=== PATIENT | male | born 1965 | race Caucasian/White ===

== ENCOUNTER 2016-11-28 11:02 | Emergency (ER) | payer SELFPAY ==
[~2016-11-28] VITALS: Ht 182.9 cm; Wt 90.7 kg
[2016-11-28 11:22] LABS: HEMOGLOBIN 15.4 g/dL (14.1-18.0); LYMPH # 1.6 K/mm3 (0.7-4.5); LYMPH % 32.1 % (10-50)
[2016-11-28 11:41] LABS: BUN 12 mg/dL (7-18); GFR (ESTIMATED) 79 ML/MIN (>60)
--- NOTE | 2016-11-28 11:45 | Emergency Room Report ---
History of Present Illness Time Seen by 1142 Presenting Problem in Triage Pt arrived:Walked Presenting Problem:PT REPORTS SUBSTERNAL CHEST PAIN THAT IS INTERMITTENT IN NATURE FOR APPROX 1 WEEK. STATES AT TIMES PAIN RADIATES TO DOYLE SIDES OF CHEST. PT REPORTS INTERMITTENT X1 WEEKS WITH "COLD SWEAT" EPISODES. 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 N Clinical Suspician of Infection? N Mental Status: 1 - Regular (Normal Baseline) Sepsis Risk:Low Sepsis Risk Have you (or family members/close friends) recently traveled outside the [place]? N If Yes, where/when: Have you had exposure to infectious disease within the past month? N TB? Other? Specify: 51-year-old white male with no past medical history presented with one week history of intermittent retrosternal burning pain with associated shortness of breath occasionall. He currently rates his pain as 3/10 with no soa. There is no palpitation no nausea no vomiting no diarrhea. No fever no chills no cough no congestion. He is not any precipitating or relieving factors. No radiation. Source patient, RN notes reviewed Exam Limitations no limitations ALLERGIES Coded Allergies: No Known Allergies (11/28/16) History Medical History General CAD? No Angina: No MN: No Hypertension? Yes Hyperlipidemia? No CHF? No DVT? No PE? No COPD? No Asthma? No Anemia? No GERD? No Gastric ulcers? No GI Bleed? No Hernia? No Thyroid Problems? No Hypothyroidism? No CVA? No Seizures? No Diabetes? No Renal Insuffiency? No End Stage Renal Disease? No UTI? Yes Stones? No GB Disease: No Nephritic Syndrome? No Asplenia? No Hepatitis? No Sickle Cell Disease? No Arthritis? No Migraines? No Cataracts? No Glaucoma? No MRSA? Yes HIV? No TB? No Anxiety? Yes Depression? Yes Cancer? No Site: SKIN CA REMOVED More? No Immunization Hx DT/Tetanus Unknown Surgical Hx Previous Surgery?Y SKIN CA REMOVALS Social History Smoking Hx Smoker: Current Every Day Smoker Tobacco: Yes Type Cigarettes Packs/day < 1 Pack Alcohol Alcohol: No Review of Systems All Other Systems Reviewed and Negative Constitutional no symptoms reported Eyes no symptoms reported ENT no symptoms reported. Respiratory no symptoms reported Cardiovascular see HPI, chest pain Gastrointestinal no symptoms reported Genitourinary no symptoms reported. Musculoskeletal no symptoms reported Skin no symptoms reported Psychiatric/Neurological no symptoms reported Physical Exam Vital Signs Vital Signs Date Time Temp Pulse Resp B/P Pulse O2 O2 Flow FiO2 Ox Delivery Rate 11/28 1347 74 16 155/93 94 11/28 1230 70 16 122/84 95 11/28 1156 60 16 135/77 97 11/28 1102 98.0 66 18 154/89 94 - WBC >12,000 or <4,000 or 10% bands? 2 or more SIRS Criteria Met? B/P:154/89 MAP:110 Creatinine >2.0? UA output<0.5ml/kg/hr for 2 hrs? Platelet count >100,000? Lactate >2.0mmol/1? INR >1.2 or PTT > than 60 sec? Evidence of Organ Dysfunction? Provider documented clinical suspician of infection? N Sepsis Criteria Count: 0 Sepsis Risk: Low Sepsis Risk General Appearance normal appearance, WD/WN Eye Exam - bilateral eye normal exam, bilateral eye PERRL, bilateral eye EOMI Ear, Nose, Throat hearing grossly normal, normal ENT inspection Neck normal inspection, non-tender, supple, full range of motion Respiratory Status Yes: trachea midline, chest symmetrical, non tender chest. No: respiratory distress. Lung Sounds bilateral: normal breath sounds, lungs clear. 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 No Results/Orders Laboratory Tests 11/28/16 1406: Troponin I < 0.02 11/28/16 1245: Troponin I < 0.02 11/28/16 1105: Lipase 127 11/28/16 1105: B-Natriuretic Peptide 12 11/28/16 1105: Sodium 137, Potassium 4.2, Chloride 100, Carbon Dioxide 31, BUN 12, Creatinine 1.0, Estimated Creat Clear 115, Estimated GFR (MDRD) 79, Glucose 105, Calcium 9.2, Total Bilirubin 0.5, AST 19, ALT 32, Alkaline Phosphatase 79, Creatine Kinase 78, CK-MB (CK-2) Rel Index 0.6, CK and CKMB Interp < 0.5, Troponin I < 0.02, Total Protein 8.4 H, Albumin 4.4, Globulin 4.0 H, Albumin/Globulin Ratio 1.1, D-Dimer 142, WBC 5.1, RBC 4.91, Hgb 15.4, Hct 45.0, MCV 91.5, RDW 12.6, Plt Count 222, MPV 8.4, Gran % 58.5, Gran # 3.0, Lymphocytes % 32.1, Monocytes % 6.0 , Eosinophils % 2.5, Basophils % 0.9, Lymphocytes # 1.6, Monocytes # 0.3, Eosinophils # 0.1, Basophils # 0.1, PUBS MCHC 34.2, MCH 31.3 H Current Medication Orders Sig/Jay Start time Last Medication Dose Route Stop Time Status Admin Albuterol/Ipratropium 0 .STK-MED ONE 11/28 1348 DC INH Albuterol/Ipratropium 3 ML ONCE ONE 11/28 1345 DC 11/28 INH 11/28 1346 1350 Famotidine 0 .STK-MED ONE 11/28 1150 DC IV Sodium Chloride 0 .STK-MED ONE 11/28 1150 DC IV Multi-Ingredient GI 0 .STK-MED ONE 11/28 1149 DC Drug PO Famotidine 20 MG ONCE ONE 11/28 1145 DC 11/28 IV 11/28 1146 1154 Multi-Ingredient GI 60 ML ONCE ONE 11/28 1145 DC 11/28 Drug PO 11/28 1146 1155 Sodium Chloride 8 ML ONCE ONE 11/28 1145 DC 11/28 IV 11/28 1146 1156 Sodium Chloride 10 ML PRN PRN 11/28 1115 AC IV 11/29 1110 Orders Procedure Date/time Status CARDIAC STRESS TEST TIARA 11/28 1431 Active RT Aerosol Treatment, Provide 11/28 1405 Active TROPONIN I 11/28 1405 Complete RT REQUEST DUONEB 11/28 1343 Active D-DIMER 11/28 1343 Complete TROPONIN I 11/28 1238 Complete LIPASE 11/28 1207 Complete BRAIN NATRIURETIC PEPTIDE 11/28 1145 Complete IV SALINE LOCK 11/28 1110 Active SURVEY STATISTICIAN 11/28 1110 Active CBC WITH AUTO DIFF 11/28 1110 Complete CARDIAC ENZYMES 11/28 1110 Complete CHEM 12 PROFILE 11/28 1110 Complete Departure Departure Time of Disposition 1144 Disposition DC Home or Self Care(routine) Clinical Impression Primary Impression: Atypical chest pain Secondary Impressions: Esophageal reflux disease, Granulomatous lung disease, Tobacco use disorder Condition STABLE Referrals Arvin Flores MD Additional Instructions The patient received GI cocktail and pain subsided, we discussed the need for outpatient work up in the form of stress test , lipid panel and snoking cessation. I contacted Dr. Flores who agreed to perform his stress test. The patient underwent a negative exercise stress test and three negative troponins. i contacted dr flores who will him in am , the patient was given his contact information. Dr. Pierre Discharge Counseling Counseled pt/family regarding diagnosis, test results, medications/RX, home care, follow up needs Prescriptions Current Visit Scripts Aspirin (Aspirin EC 81MG Tab) 81 MG PO DAILY #30 TAB Ref 6 Pantoprazole Sodium (Protonix 40MG TAB) 40 MG PO DAILY #90 TAB ED Critical Care Critical Care No If Critical Care minutes are documented, the time involved in the performance of seperately reportable procedures was not counted toward critical care time documented. I directly delivered medical care to this critically ill and/or injured patient. Timely evaluation and treatment was necessary to address the significant organ system(s) dysfunction present in this patient. at 1440
--- NOTE | 2016-11-28 12:08 | RADIOLOGY REPORT PS360 ---
CHEST(2 VIEWS-NOT PORTABLE) HISTORY: CHEST PAIN ORDERING PHYSICIAN: PATIENT AGE: 51 years COMPARISON: None available FINDINGS: The cardiomediastinal silhouette and pulmonary vascularity are within normal limits. The lungs are clear without infiltrates, suspicious nodules, or pleural effusions. There is evidence of old granulomatous disease No acute bony abnormalities. There is an old right clavicle fracture IMPRESSION: No acute finding, old granulomatous disease
[2016-11-28] MEDS ORDERED: ASPIR 8181 MG PO (12:21)
[2016-11-28] MEDS ORDERED: PROTONIX 40MG T40 MG PO (12:21)
[2016-11-28 14:54] VITALS: BP 139/68
--- OUTSIDE RECORDS SUMMARY | 2016-11-28 21:35 | External Medical Summary Rpt ---
Author Author PAU Address Unknown Phone [email or web address] Purpose Continuity of Care Document - 11-28-2016 through 2016
--- OUTSIDE RECORDS SUMMARY | 2016-11-28 21:35 | External Medical Summary Rpt ---
Author Author BUFF[employer] Organization [employer] Address Unknown Phone Unavailable Purpose Continuity of Care Document - through 2016
--- OUTSIDE RECORDS SUMMARY | 2016-11-28 21:35 | External Medical Summary Rpt ---
Author Author PAU Pizano, CHRISTINAMISHA [employer] Organization [employer] Address Unknown Phone Unavailable Results Fibrin D-dimer FEU [Mass/volume] in Platelet poor plasma Observa Value Referen Units Interpr Notes Date tion ce etation Range Fibrin 0 - 400 ng/mL Normal The Nov 28 D-dimer D-Dimer 2016 FEU values 11:05 AM [Mass/vol are ume] in presented Platelet in units poor of plasma mass(ng/m L) ofD-Dimer units(DDU ).This test has been FDA approved as an aid in the assessmen tand evaluatio n of suspected DIC, and thromboem bolic eventsinc luding PE and DVT. However, it does not have approvalf or cut-off values for the exclusion of these condition s. Lipase [Enzymatic activity/volume] in Serum or Plasma Observa Value Referen Units Interpr Notes Date tion ce etation Range Lipase 73 - 393 U/L Normal No Nov 28 [Enzymati inform2016 c on in 11:05 AM activity/ source volume] data in Serum or Plasma Natriutietic peptide B [Mass/volume] in Serum or Plasma Observa Value Referen Units Interpr Notes Date tion ce etation Range Natriutie 0 - 100 pg/mL Normal No Nov 28 tic 2016 peptide B on in 11:05 AM source [Mass/vol data ume] in Serum or Plasma CBC W Auto Differential panel in Blood Observa Value Referen Units Interpr Notes Date tion ce etation Range Basophils 0 - 0.2 K/MM3 Normal No Nov 28 inform2016 [#/volume on in 11:05 AM ] in source Blood by data Automated count Basophils 0.1 - 2.0 % Normal No Nov 282016 leukocyte on in 11:05 AM s in source Blood by data Automated count Eosinophi 0.0 - 0.4 K/mm3 Normal No Nov 28 ls inform2016 [#/volume on in 11:05 AM ] in source Blood by data Automated count Eosinophi 0.1 - % Normal No Nov 28 ls/100 12.0 inform2016 leukocyte on in 11:05 AM s in source Blood by data Automated count Granulocy 1.3 - 8.0 K/mm3 Normal No Nov 28 jory inform2016 [#/volume on in 11:05 AM ] in source Blood by data Automated count Granulocy 37.0 - % Normal No Nov 28 jory/100 80.0 2016 leukocyte on in 11:05 AM s in source Blood by data Automated count Hematocri 42.0 - % Normal No Nov 28 t [Volume 52.0 ati 2016 on in 11:05 AM Fraction] source of Blood data Hemoglobi 14.1 - g/dL Normal No Nov 28 n 18.0 informati 2016 [Mass/vol on in 11:05 AM ume] in source Blood data Lymphocyt 0.7 - 4.5 K/mm3 Normal No Nov 28 es inform2016 [#/volume on in 11:05 AM ] in source Unspecifi data ed specimen by Automated count Lymphocyt 10 - 50 % Normal No Nov 28 es 2016 [#/volume on in 11:05 AM ] in source Unspecifi data ed specimen by Automated count Erythrocy 27 - 31.2 pg High No Nov 28 te mean 2016 corpuscul on in 11:05 AM ar source hemoglobi data n [Entitic mass] Erythrocy 31.8 - g/dl Normal No Nov 28 te mean 35.4 2016 corpuscul on in 11:05 AM ar source hemoglobi data n concentra tion [Mass/vol ume] by Automated count Erythrocy 82.2 - fl Normal No Nov 28 te mean 97.8 2016 corpuscul on in 11:05 AM ar volume source [Entitic data volume] by Automated count Monocytes 0.1 - 1.0 K/mm3 Normal No Nov 28 inform2016 [#/volume on in 11:05 AM ] in source Blood by data Automated count Monocytes 1.7 - 9.3 % Normal No Nov 28 /100 inform2016 leukocyte on in 11:05 AM s in source Blood by data Automated count Platelet 7.4 - fl Normal No Nov 28 mean 10.4 inform2016 volume on in 11:05 AM [Entitic source volume] data in Blood by Automated count Platelets 142 - 424 K/mm3 Normal No Nov 28 inform2016 [#/volume on in 11:05 AM ] in source Blood data Erythrocy 4.6 - 6.2 M/mm3 Normal No Nov 28 jory informati 2016 [#/volume on in 11:05 AM ] in source Amniotic data fluid Erythrocy 11.5 - % Normal No Nov 28 te 17.5 informati 2016 distribut on in 11:05 AM ion width source [Entitic data volume] by Automated count Leukocyte 4.8 - K/MM3 Normal No Nov 28 s 10.8 informati 2016 [#/volume on in 11:05 AM ] in source Blood data
--- OUTSIDE RECORDS SUMMARY | 2016-11-28 21:35 | External Medical Summary Rpt ---
Author Author PAU Address Unknown Phone [email or web address] Purpose Continuity of Care Document - 11-28-2016 through 2016
--- OUTSIDE RECORDS SUMMARY | 2016-11-28 21:35 | External Medical Summary Rpt ---
Demographics Preferred Language Divehi Marital Status Unknown Orthodoxy Affiliation Unknown Race Unknown Ethnic Group Unknown Author Author PAU Address Unknown Phone Immunization No patient found.
--- OUTSIDE RECORDS SUMMARY | 2016-11-28 21:35 | External Medical Summary Rpt ---
Demographics Preferred Language Danish Marital Status Unknown Jewish Affiliation Unknown Race Unknown Ethnic Group Unknown Author Author PAU Address Unknown Phone Immunization No patient found.
== END 2016-11-28 14:55 | disposition home or self-care (01) ==
LOC: ER 11:02
PROVIDERS: Emergency Medicine
DX: R07.89 Other chest pain (principal); K21.9 Gastro-esophageal reflux disease without esophagitis; Z72.0 Tobacco use; I10 Essential (primary) hypertension; D71 Functional disorders of polymorphonuclear neutrophils